=== PATIENT | female | born 1985 ===

== ENCOUNTER 2019-08-15 12:27 | Emergency (ER) | payer OTHER ==
[~2019-08-15] VITALS: Ht 149.9 cm; Wt 59.0 kg
[~2019-08-15 12:27] MED LIST: ATABEX DHA CAP1 EACH; MACROBID 100 M100 MG PO
== END 2019-08-15 18:19 | disposition home or self-care (01) ==
LOC: ER 12:27
DX: O20.0 Threatened abortion (principal); Z3A.01 Less than 8 weeks gestation of pregnancy